=== PATIENT | female | born 1995 | race Caucasian/White ===

== ENCOUNTER 2018-07-09 13:45 | Outpatient (RCR) | payer MEDICARE, MEDICAID, SELFPAY ==
--- NOTE | 2018-07-09 18:56 | HP.OTFCE_ITS ---
HP OT Functional Capacity Eval - Task Lift Floor (Occasional 1-33% of Day): 35 lbs Floor (Frequent 34-66% of Day): 20 lbs Floor (Constant 67-100% of Day): 7 lbs Floor PDL: Light-Medium Knee (Occasional 1-33% of Day): 35 lbs Knee (Frequent 34-66% of Day): 20 lbs Knee (Constant 67-100% of Day): 7 lbs Knee PDL: Light-Medium Waist (Occasional 1-33% of Day): 40 lbs Waist (Frequent 34-66% of Day): 20 lbs Waist (Constant 67-100% of Day): 8 lbs Waist PDL: Light-Medium Shoulder (Occasional 1-33% of Day): 40 lbs Shoulder (Frequent 34-66% of Day): 20 lbs Shoulder (Constant 67-100% of Day): 8 lbs Shoulder PDL: Light-Medium Overhead (Occasional 1-33% of Day): 30 lbs Overhead (Frequent 34-66% of Day): 15 lbs Overhead (Constant 67-100% of Day): 6 lbs Overhead PDL: Light - Work Activity/Posture Bending: Occasional Ability (1-33% of day) Squatting: Occasional Ability (1-33% of day) Kneeling: Occasional Ability (1-33% of day) Reaching out: Frequent Ability (34-66% of day) Reaching up: Frequent Ability (34-66% of day) Sitting: Frequent Ability (34-66% of day) Walking: Occasional Ability (1-33% of day) - Reference Duration Sedentary Sedentary Light Light Light Medium Medium Medium Heavy Very Heavy Heavy Occasional (0-33% of day) Frequent (34-66% of day) Constant (67-100% of day) 10 # Negligible Negligible 15 # 8 # Negligible 20 # 10# Negli. 35 # 18 # 7 # 50 # 25 # 10 # 75 # 100 # >100 # 38 # 50 # >50 # 15 # 20 # >20 # - Patient Information Height: 163 m Weight:: 130.272 kg Hand Dominance: ambidextrous BP (Medication Use/Usual Values per pt report): No - Medical History Medical History Including Restrictions: No medical restrictions per Pt. report. Mother notes she does not have gaurdianship but does take care of social secuirty. Additionally Wendy has home health aide that comes on mondays only for cooking, cleaning, and safety precautions around home. - Diagnoses Diagnoses: Current: Wendy has cognitive developmental delay per Pt. and adopted mother. Adopted mother, [place], noted both biological mom and dad are below average with intellectual like disabilities. PMHx: H/o of L wrist fractures, no other pertinent medical history. - Symptoms Symptoms: She noted no real pain or discomfort. Adopted mother notes that she has limited ability to read, cannot add or subtract, limited awareness of money management skills. - Pain Pain: She noted no real pain or discomfort. Pain noted issue at this time. The biggest symptoms are cognitive related delays. - Work History Work History: Wendy has been working at [employer] in [place] for almost 2 years. 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 She noted she is working about three days for four hours a day. She is required to stand for about 2 hour increments until 15 mins lunch break and then needs to stand the rest of the time. Previously worked at [employer] prior to getting job at [employer]. - ADLS ADLS: [facility] [place] with [facility]. She notes there are about 4-5 steps to get to front door and then into apartment. Notes she often cuts through yard. Wendy notes that she is able to complete all ADLs (I) including showering, dressing, and basic hygiene. She has 1x day a week where aid comes into help as needed with cooking, cleaning, and general safety checks. She completed mircowave meals only. She does not drive due to cog nitive impairments. No pet. - Physical Examination Physical Examination: BP 146/81. hr- 62. 02- 95% ROM: Spinal Movements: - No pain and no functional deficits noted. Shoulder: - flexion: R 0-140 L 0-140. - extension: R 0-59 L 0-47. Elbow. -no functional deficits noted. Wrist: - flexion: R 0-55, L 0-59. - extension: R 0-45, L 0-53. h/o of L wrist fracture about 8 years ago. LE ROM. Hip. - flexion: R 0-100 L 0-104. -extension: demonstrates normal range of motion. Knee. - flexion: R 0-106- normal soft tissue limiations, L 0- 110 normal soft tissue limiations. - extension: R 106-0 able to move knee to neutral L 110- 0 able to move knee to neutral Right Supervisor Of Guidance And Testing Strength Average: 54.00 Left Supervisor Of Guidance And Testing Strength Average: 55.66 Right Lateral Pinch Average: 19.33 Left Lateral Pinch Average: 19.66 Right Tripod Pinch Average: 16.00 Left Tripod Pinch Average: 17.00 Comments: Needs [employer] [place] A 1x to correctly demonstrate tripod pinch. Sensation: Denies numbness of tingling in hands and feets. Monofilment test completed and score at 2.83 or normal for all percieved touch sensation of B hands and palm for touch sesnations. Restuls as follows: R 2nd 2.83, 3rd 2.83, 4th 2.83, 5th 2.83, thumb 2.83. L 2nd 2.83, 3rd 2.83, 4th 2.83, 5th 2.83, thumb 2.83 Fine Motor: Wendy's fine motor control is intact. Completed purdue [place] to further observed FMC. Results are as follows: One trial for each: Right Hand: 12. -percentile: Left hand: 11. -percentile: Both: 11. -percentile: R+L+B: 34. -percentile: assemby: 4. -percentile: Balance: Completed the following balance tests to detemrine staic and dynamic balance abilities: Elenaen Romberg. With Vision: -Together: 60 s. -Semi tandem: 60 s. -Tandem: 60s. With Vision Occulded: -Together: 60 s. -Semi tandem: 45 s. -Tandem: 60s (2x LOB with self correcting ability at 22 s). Functional Gait Assessment: 1. Gait level surface: mild. 2.chnage in gait speed: mild. 3. Gait with horizontal Head Turns: Moderate. 4. Gait with Vertical Head Turns: Moderate. 5. Gait with Pivot Turn: Mild. 6. Step over obstacle: moderate. 7. Gait with Narrow base of support: severe. 8. Gait with eyes closed: moderate. 9. Ambulating Backwards: Mild. 10. Steps: Mild. Total: 12/30 - Non Material Handling Activities Bendinx, 10x (22 seconds to complete), 10x fast (18 seconds to com. aBLE TO COMPLETE full bend. Needed seated for 30 seconds break post task. HR 105. )2 95 % Squattinx, 1x10x , 1x10 fast 16 seconds. Completed to about 50% of full. Increased SOb noted. Compensations for increased holding of breath through task, narrow TASHA. BP: 152/87. HR 130. 02 96% Kneelinx- full knee to ground, 10x-completed in 10s with only to 25% of full kneel. can able completed about 25% of full knee and noted If I go all the way down I may not be able to get back up. Increased mechanics defcitis noted with icnreased SOB and need for UE assistance and compensations of lateral leaning. Break iniated at end due to blood pressure increasing. . BP 160/79. HR 122 bpm. 02 96 Reaching out/up: From seated position: Reaching out: 1x, 10x, 10x fast 12 seconds to complete. Reaching up from standing position: 1x, 10x 17 seconds to complete, 10x faster at 11 seconds to complet. Bp: 127/79. HR 98. 02 96 Walkin mins walking during session. able to complete fast paces walking 100 yard in 77.53 s. Attemtped to detemrine. Post 100 yards HR 131 bpm, 02 96%, BP 157/73 Standing: Wendy that she is able to stand about two hours while at work. Sitting: Able to completed about 45-50 mins of sitting. Notes she only sits for about 15 mins. Climbing Stairs: 40 stairs. Completed 1x handrail with use of alternating foot pattern. HR 146. 02 95%. BP 148/86 - Dynamic Occasional Lifting Capacity Floor Lift: Max weight: 40 lbs. Occassional weight: 35 lbs. Frequent weight: 20 lbs. HR 129. 02 96% Knee Lift: Max weight: 40 lbs. Occassional weight: 1x35 lbs. Frequent weight: 5x 20 lbs. HR 140 bpm. 02 96%. BP 103/61 Waist Lift: Max weight: 50 lbs. Occassional weight: 1x 40 lbs. Frequent weight: 5x 20 lbs. HR 133 bpm. 02 96%. BP 142/93 Shoulder Lift: Max weight: 50 lbs. Occassional weight:1x 40 lbs. Frequent weight: 5x 20 lbs. HR: 121 bpm. 02 96% Overhead Lift: Max weight: 35 lbs. Occassional weight: 1x 30 lbs. Frequent weight: 5x 15 lbs. HR 125 bpm. 02 97%. BP 163/78 Carrying: Bilateral Arm Carry. Max weight:35 lbs. Occassional weight: 30 lbs. Frequent weight: 20 lbs. HR 144 bpm. 02 96%. BP 143/85 Comments: Completed [facility] for a quick cognitive screen. She shows increased signs of cognitive delays and impairments with scoring 13/30. She exhibits increased difficulty discriminating R from L.
--- NOTE | 2018-07-09 18:56 | HP.OTFCE.D ---
FCE D/C Summary - Discharge BLESSING Susan EASTON was seen for a one time visit for an FCE on 07/09/18 and is discharged.
--- NOTE | 2018-07-11 11:33 | HP.OTFCE_ITS ---
HP OT Functional Capacity Eval - Task Lift Floor (Occasional 1-33% of Day): 35 lbs Floor (Frequent 34-66% of Day): 20 lbs Floor (Constant 67-100% of Day): 7 lbs Floor PDL: Light-Medium Knee (Occasional 1-33% of Day): 35 lbs Knee (Frequent 34-66% of Day): 20 lbs Knee (Constant 67-100% of Day): 7 lbs Knee PDL: Light-Medium Waist (Occasional 1-33% of Day): 40 lbs Waist (Frequent 34-66% of Day): 20 lbs Waist (Constant 67-100% of Day): 8 lbs Waist PDL: Light-Medium Shoulder (Occasional 1-33% of Day): 40 lbs Shoulder (Frequent 34-66% of Day): 20 lbs Shoulder (Constant 67-100% of Day): 8 lbs Shoulder PDL: Light-Medium Overhead (Occasional 1-33% of Day): 30 lbs Overhead (Frequent 34-66% of Day): 15 lbs Overhead (Constant 67-100% of Day): 6 lbs Overhead PDL: Light Comments: Increased heart rate and blood pressure at times throughout task. Poor body mechanics noted throughout all material handling as well as increased compensations noted of holding breath for task. - Work Activity/Posture Bending: Occasional Ability (1-33% of day) Squatting: Occasional Ability (1-33% of day) Kneeling: Occasional Ability (1-33% of day) Comments: She should avoid this based on performance. See below. Reaching out: Frequent Ability (34-66% of day) Reaching up: Frequent Ability (34-66% of day) Sitting: Frequent Ability (34-66% of day) Walking: Occasional Ability (1-33% of day) Standing: Frequent Ability (34-66% of day) - Reference Duration Sedentary Sedentary Light Light Light Medium Medium Medium Heavy Very Heavy Heavy Occasional (0-33% of day) Frequent (34-66% of day) Constant (67-100% of day) 10 # Negligible Negligible 15 # 8 # Negligible 20 # 10# Negli. 35 # 18 # 7 # 50 # 25 # 10 # 75 # 100 # >100 # 38 # 50 # >50 # 15 # 20 # >20 # - Patient Information Height: 163 m Weight:: 130.272 kg Hand Dominance: ambidextrous BP (Medication Use/Usual Values per pt report): No - Medical History Medical History Including Restrictions: No medical restrictions per Pt. report. Mother notes she does not have gaurdianship but does take care of social secuirty. Noted this is for social secuirty request and is not based on current job placement. Additionally Wendy has home health aide that comes on Mondays only for cooking, cleaning, and safety precautions around home. - Diagnoses Diagnoses: Current: Wendy has cognitive developmental delay per Pt. and adopted mother. Adopted mother, Columba, noted both biological mom and dad are below average with intellectual like disabilities. PMHx: H/o of L wrist fractures, no other pertinent medical history. - Symptoms Symptoms: She noted no real pain or discomfort. Adopted mother notes that she has limited ability to read, cannot add or subtract, limited awareness of money management skills. - Pain Pain: She noted no real pain or discomfort. Pain noted issue at this time. The biggest symptoms are cognitive related delays. - Work History Work History: Wendy has been working at [employer] in [place] for almost 2 years. 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 She noted she is working about three days for four hours a day. She is required to stand for about 2-hour increments until 15-minute lunch break and then needs to stand the rest of the time. She was unsure of how much lifting is required but noted it is basically standard dishes with some pots and pans. Previously worked at [employer] prior to getting job at [employer]. 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 - Behavioral Behavioral: Wendy was pleasant and cooperative throughout task. Mother additionally was pleasant and cooperative and provided additional information as needed when appropriate. Wendy has increased cognitive related impairments which have been present since childhood. She needs cues and visual demonstration prior to completion of tasks. She is able to follow one step directions and at times two steps directions. She has poor insight to time and money management as needing to refer to mother about if having enough money to buy a donut with debit card. Additionally, per mother report and what was observed Wendy cannot complete simple math tasks and can only read simple sentences of 1-3 words. - ADLS ADLS: Wendy lives in [address] apartments in [place] with [facility]. She notes there are about 4-5 steps to get to front door and then into apartment. No handrails noted. Notes she often cuts through yard. Wendy explained that she is able to complete all ADLs (I) including showering, dressing, and basic hygiene. She has 1x day a week where aide comes into help as needed with cooking, grocery shopping, cleaning, and completes basic safety checks. She completed microwave meals only. She does not drive due to cognitive impairments. No pets. - Physical Examination Physical Examination: Wendy completed a Functional Capacity evaluation (FCE) on this date 07/09/18. Per patient report she was referred from primary care physician due to insurance related purposes. The purpose of this FCE was to determine the physical abilities of Wendy to complete material and non- material handling related tasks. Her resting diagnostics prior to start of examination are as follows: Blood pressure (BP): 146/81 mmHg. Heart Rate (HR): 62 bpm. Oxygen saturation levels (02): 95%. Based on these measurements her aerobic limiting factor calculated is 160 bpm and maximum lifting weight based on 60% of body weight should not exceed 172 lbs. ROM: Spinal Movements: - No pain and no functional deficits noted. Shoulder: - flexion: R 0-140 L 0-140. - extension: R 0-59 L 0-47. Elbow. -no functional deficits noted. Wrist: - flexion: R 0-55, L 0-59. - extension: R 0-45, L 0-53. h/o of L wrist fracture about 8 years ago. LE ROM. Hip. - flexion: R 0-100 L 0-104. -extension: demonstrates normal range of motion. Knee. - flexion: R 0-106- normal soft tissue limitations, L 0- 110 normal soft tissue limitations. - extension: R 0-0 able to move knee to neutral L 0-0 able to move knee to neutral Strength: B UE: cues needed to complete tasks. Increased confusion of patient with required movements needed to complete tasks. With one step directions able to complete. Increased difficulty noted with following standard cues for up, down, in, and out. Additionally, Wendy has increased difficulty completing L vs R hand and LE discrimination. UE strength testing: Shoulder. -Flexion: R 4/5, L 4+/5. -Internal Rotation: R 4/5, L 4+/5. -External Rotation: R 4/5, L 4+/5. Elbow: -Flexion: R 5/5, L 5/5. -Extension: R 5/5, L 5/5. Wrist: -Flexion: R 5/5, L 5/5. -Extension: R 5/5, L 5/5. B LE. -Hip Flexors: R 5/5, L 5/5. -Hip Adductors: R 5/5, L 5/5. -Hip Abductors: R 5/5, L 5/5. -Knee flexion: R 5/5, L 5/5. -Knee extension (hamstring):R 5/5, L 5/5. - Plantarflexion: R 5/5, L 5/5. -Dorsiflexion: R 5/5, L 5/5 Right Census Clerk Strength Average: 54.00 Right Census Clerk Strength Percentile: 70 th Left Census Clerk Strength Average: 55.66 Left Census Clerk Strength Percentile: 65th Right Lateral Pinch Average: 19.33 Right Lateral Pinch Percentile: above 90th Left Lateral Pinch Average: 19.66 Left Lateral Pinch Percentile: above 90th Right Tripod Pinch Average: 16.00 Right Tripod Pinch Percentile: 90th Left Tripod Pinch Average: 17.00 Left Tripod Pinch Percentile: 90th Comments: Required [place] 1x to correctly demonstrate tripod pinch. After demonstration able to complete. Unable to complete from visual demonstration alone. Sensation: Denies numbness of tingling in hands and feet. Monofilament test completed. A score on the Monofilament test at 2.83 of less is normal for all perceived touch sensation of B hands and palm for touch sensations. Results are as follows: R 2nd 2.83, 3rd 2.83, 4th 2.83, 5th 2.83, thumb 2.83. L 2nd 2.83, 3rd 2.83, 4th 2.83, 5th 2.83, thumb 2.83. Wendy's B hand perceived touch sensations is normal as per measurements on monofilament. Fine Motor: Luana fine motor control is intact. Completed [place] Pegboard to further observed FMC. Results are as follows: One trial for each: Right Hand: 12. -percentile: below 1st. Left hand: 11. -percentile: below 1st. Both: 11. -percentile: 5th percentile. R+L+B: 34. -percentile: 8th percentile. Assembly: 4. -percentile: below 1st. Able to complete tasks. For both hand measurements needed cues to complete hands together as originally wanting to complete alternating hands. Able to complete correctly after practice. Cues needed for correct hand use for assembly but after 3x trails able to complete correctly. Motivated to complete correctly and pleasant when corrected. Balance: Completed the following balance tests to determine static and dynamic balance abilities: Elias [place]. With Vision: -Together: 60 s. -Semi tandem: 60 s. -Tandem: 60s. With Vision Occluded: -Together: 60 s. -Semi tandem: 45 s. -Tandem: 60s (2x LOB with self-correcting ability at 22 s). Completed with nondominant foot forward and shoes off. Exhibited static balance with and without vision. Able to complete with ability to self-correct 1dx loss of balance with eyes closed while in tandem. Functional Gait Assessment: Shoes donned prior to assessment. 1. Gait level surface: mild. 2.chnage in gait speed: mild. 3. Gait with horizontal Head Turns: Moderate. 4. Gait with Ve rtical Head Turns: Moderate. 5. Gait with Pivot Turn: Mild. 6. Step over obstacle: moderate. 7. Gait with Narrow base of support: severe. 8. Gait with eyes closed: moderate. 9. Ambulating Backwards: Mild. 10. Steps: Mild. Total: 09/09. Wendy exhibited increased difficulty completing dynamic balance tasks with increased difficulty completing vestibular related movements of head up, down, left and right. No real gait related deviations observed from neutral as patient did not move head. When completing head movements deviation of gait noted. Gait deviations noted with head movements as well as when needing to step over obstacle. Performance well below lowest age comparative data of 40-49 y/o. She scored below 2 standard deviations below normative data. This indicates greater potential for there to be deficits with dynamic balance. No loss of balance noted during FGA. - Non Material Handling Activities Bendinx, 10x (22 seconds to complete), 10x fast (18 seconds to complete). Able to complete full bend from standing to floor height. Compensations noted of holding breath through task. Cues to breathe. Increased SOB observed but when asked denied by patient. Base of support within shoulder height. Need for seated for 30 seconds break post task. No pain reported. . HR 105. 02 95 % Squattinx, 1x10x , 1x10 fast (16 seconds). Completed to about 50% of full squat. Increased SOB noted. Compensations for increased holding of breath through task, narrow TASHA. No pain reported. Increase in heart rate observed. BP: 152/87mmHg. HR 130 bpm. 02 96% Kneelinx- full knee to ground, 10x-completed in 10s with only to 25% of full kneel. Able completed about 25% of full knee and noted If I go all the way down I may not be able to get back up. Increased mechanical deficits noted with increased SOB and need for UE assistance and compensations of lateral leaning to move back to upright position. Break initiated at end due to blood pressure increasing. Should avoid frequent kneeling tasks. . BP 160/79 mmHg. HR 122 bpm. 02 96% Reaching out/up: From seated position: Reaching out: 1x, 10x, 10x fast (12 seconds to complete). Reaching up from standing position: 1x, 10x (17 seconds to complete), 10x faster ( 11 seconds to complete). BP: 127/79 mmHg. HR 98 bpm. 02 96%. No pain reports and noted mechanical deficits or changes observed. Decrease in heart rate observed. Walkin mins walking during session. Completed 16 mins consistently and another 5 mons later in session. Able to complete 100 yards at Pt. faster pace in 77.53 s. Post 100 yards test HR 131 bpm, 02 96%, BP 157/73 mmHg. Attempted to determine increased frequency of walking through use of treadmill as Pt. had reported completing treadmill tasks as a member of local [employer]. Bother Pt. and mother noted no issues with treadmills when asked by OT. While completing task Wendy appeared to fixate on watching track movements, did not move feet while watching track, causing body and become out of alignment and further needing to stop prior to getting injured. Was unable to engage in speed greater than .8 mph due to lack of ability to complete divider attention. After task Wendy informed OT she has previously fallen off treadmill at [facility]. She did not indicate prior to task and noted she had complete treadmills previously. If OT had known this information this task would have not attempted. She was not hurt, and all tasks were stopped prior to any injury. Prior to task she did not demonstrate any dynamic loss of balance or safety concerns that would have originally indicated to OT to not complete task. Balance was below average for FGA but was able to sustain normal pace. Standing: Wendy noted that she is required to stand for about two hours increments while at work. She was able to complete 23 mins standing without need for seated break. No pain noted with task. Sitting: Able to complete about 45-50 mins of sitting. Notes she only sits for about 15 mins at time but can sit for longer if needed. No issues with seated position. No pain noted with task. Climbing Stairs: Completed 40 stairs with use of 1x handrail with use of alternating foot pattern. Completed 40 stairs in about 4 mins. Needs to use vision to complete foot pattern by frequently observed looking down. Stopped with increased SOB noted and Pt. requested break. HR 146. 02 95%. BP 148/86 mmHg - Dynamic Occasional Lifting Capacity Floor Lift: Max weight: 40 lbs. Occasional weight: 35 lbs. Frequent weight: 20 lbs. HR 129. 02 96%. Completed floor lift with increased compensations and poor body mechanics of lifting straight arms, straight legs, and increased thoracic flexion of back. Narrow base of support also noted. No pain noted with movements. SOB noted throughout task. With decreased weight, less compensations noted. Completed at normal pace related to Pt. from previous tasks throughout session. No increased in heart rate noted. In general, compensations decreased as weight decreased but general poor body mechanics appear to be due to lack of knowledge on correct lift mechanics rather than pain related diagnosis. She was able to correct a little with OT cueing but would likely need further training to decrease compensations. Knee Lift: Max weight: 40 lbs. Occasional weight: 1x35 lbs. Frequent weight: 5x 20 lbs. HR 140 bpm. 02 96%. BP 103/61 mmHg. Completed tasks with poor body mechanics of decreased spinal alignment and lifting with straight legs and arms. Attempted to lift with straight arms but need bend to manipulation of task. Able to problem solve through task. SOB noted with all exertional tasks. No pain reported. Increased in heart rate observed from previous task of floor lift. Waist Lift: Max weight: 50 lbs. Occasional weight: 1x 40 lbs. Frequent weight: 5x 20 lbs. HR 133 bpm. 02 96%. BP 142/93 mmHg. Decrease in heart rate from previous tasks. Fair body mechanics and less compensations observed compared to previous two tasks of floor and knee lifts. Still noted some compensations of holding breath off/on throughout session. Completed with slight twisting of trunk. No pain noted. No increased in heart rate compared to previous measurement post knee lift. Shoulder Lift: Max weight: 50 lbs. Occasional weight:1x 40 lbs. Frequent weight: 5x 20 lbs. HR: 121 bpm. 02 96%. Completed with fair body mechanics. Increased compensations noted of holding breath. Pt. reported no pain and appears holding breath due to just physical exertion of movement. No pain behaviors noted. No increase in heart rate. Overhead Lift: Max weight: 35 lbs. Occasional weight: 1x 30 lbs. Frequent weight: 5x 15 lbs. HR 125 bpm. 02 97%. BP 163/78 mmHg. Completed with poor body mechanics of decrease spinal alignment when raising overhead. Need for increased cervical flexion and lumbar extension to promote lifting task. Completed same compensations with decreased weight. Does note report pain but rather appears to be due to lack of lifting knowledge. No increase in heart noted. Carrying: Bilateral Arm Carry. Max weight:35 lbs. Occasional weight: 30 lbs. Frequent weight: 20 lbs. HR 144 bpm. 02 96%. BP 143/85 mmHg. Completed with fair body mechanics and able to complete at average like speed compared to performance throughout evaluation. Some increased trunk extension noted but appears to be present with lightest weight and more of lack of knowledge of proper body mechanics than due to pain. Pt. reports no pain with movement. Increase in heart was noted. Appeared to be SOB but denied when asked. Comments: Completed [facility] for a quick cognitive screen. She shows increased signs of cognitive delays and impairments with scoring 13/30. She exhibits increased difficulty discriminating R from L.
== END 2018-07-09 19:00 | disposition home or self-care (01) ==
LOC: OT 13:45
PROVIDERS: Family Provider Family Medicine; PCP Family Medicine; Referring Provider Family Medicine; Visit Provider Family Medicine
DX: F81.9 Developmental disorder of scholastic skills, unspecified (principal)
CPT/HCPCS: 97750